=== PATIENT | male | born 2000 | race Native Hawaiian/Other Pacific Islander ===

== ENCOUNTER 2020-12-26 10:12 | Emergency (ER) | payer BC, OTHER ==
[~2020-12-26] VITALS: Ht 170.2 cm; Wt 68.0 kg
[2020-12-26 10:35] LABS: URINE BILIRUBIN NEGATIVE (Negative); URINE BLOOD NEGATIVE (Negative); URINE CLARITY CLEAR; URINE COLOR YELLOW; URINE GLUCOSE-RANDOM* NEGATIVE (Negative); URINE KETONES NEGATIVE (Negative); URINE LEUKOCYTES-REFLEX NEGATIVE (Negative); URINE NITRITE-REFLEX NEGATIVE (Negative); URINE PROTEIN (DIPSTICK) NEGATIVE (Negative); URINE SPECIFIC GRAVITY 1.025 (1.005-1.035); URINE UROBILINOGEN 0.2 E.U./dl (0.2-1.0)
[2020-12-26] MEDS ORDERED: LEXAPRO 10 MG T10 MG PO (10:35)
[2020-12-26] MEDS ORDERED: PROAIR HFA8.5 GM INH (10:35)
[2020-12-26 10:37] LABS: ABSOLUTE NEUTROPHILS 3.9 thou/uL (1.4-8.2); BASOPHILS 0.9 % (0.0-2.0); EOSINOPHILS 9.3 % (0.0-3.0); HEMATOCRIT 45.9 % (42.0-52.0); HEMOGLOBIN 15.1 gm/dL (14.0-18.0); LYMPHOCYTES 25.8 % (24.0-44.0); MCV 72.8 fL (80.0-100.0); MONOCYTES 9.1 % (1.0-8.0); PLATELET COUNT 347 thou/uL (150-400); POLYS 54.9 % (36.0-66.0); RDW 14.9 % (10.5-14.5); WBC 7.1 thou/uL (4.0-11.0)
[2020-12-26 10:47] LABS: CALCIUM 9.7 mg/dL (8.5-10.1); CREATININE 0.9 mg/dL (0.7-1.3); POTASSIUM 4.1 mmol/L (3.5-5.1)
[2020-12-26 10:51] LABS: ALBUMIN 4.2 g/dL (3.4-5.0); TOTAL BILIRUBIN 0.3 mg/dL (0.2-1.0); TOTAL PROTEIN 8.2 g/dL (6.4-8.2)
[2020-12-26 13:16] VITALS: BP 120/79
[2020-12-26] MEDS ORDERED: CIPRO500 M1 PO (13:16)
[2020-12-26] MEDS ORDERED: NORCO5 PO (13:16)
[2020-12-26] MEDS ORDERED: FLAGYL500 M1 PO (13:16)
== END 2020-12-26 13:31 | disposition home or self-care (01) ==
LOC: ER 10:12
PROVIDERS: Emergency Medicine
DX: K52.9 Noninfective gastroenteritis and colitis, unspecified (principal); J45.909 Unspecified asthma, uncomplicated; Z79.51 Long term (current) use of inhaled steroids; Z79.899 Other long term (current) drug therapy; Z91.048 Other nonmedicinal substance allergy status